=== PATIENT | male | born 1965 | race Caucasian/White ===

== ENCOUNTER 2021-06-10 11:48 | Outpatient (REF) | payer BC, SELFPAY ==
--- NOTE | ~2021-06-10 | XR_ITS ---
EXAMINATION: XR SHOULDER, LEFT CLINICAL INFORMATION: Pain COMPARISON: None TECHNIQUE: AP external rotation, Grashey, scapular Y, and axillary views of the left shoulder. FINDINGS: The bones and soft tissues are normal. No fracture. Glenohumeral and acromioclavicular alignment is anatomic with normal joint space. No abnormal soft tissue calcifications. XR/XR shoulder LT min 2V IMPRESSION: Normal left shoulder.
[2021-06-10 12:02] LABS: MANUAL DIFF FLAG NO
[2021-06-10 13:07] LABS: Basophils Absolute Auto 0.1 X10*3/uL (0.0-0.2); Basophils Percent Auto 0.8 % (0-2); Eosinophils Absolute Auto 0.3 X10*3/uL (0.0-0.4); Eosinophils Percent Auto 3.7 % (0-4); Hematocrit 48.1 % (42-52); Hemoglobin 16.1 g/dl (14.0-18.0); Imm Gran Abs Auto 0.02 X10*3/uL (0.00-0.03); Imm Gran Pct Auto 0.2 % (0.0-0.4); Lymphocytes Absolute Auto 2.2 X10*3/uL (1.2-4.9); Lymphocytes Percent Auto 25.8 % (20-40); Mean Corpuscular HGB Conc 33.5 g/dl (31.0-36.0); Mean Corpuscular Hemoglobin 30.6 pg (27.0-33.0); Mean Corpuscular Volume 91.4 fL (80-98); Mean Platelet Volume 11.1 fL (9.4-12.4); Monocytes Absolute Auto 0.5 X10*3/uL (0.1-1.2); Monocytes Percent Auto 6.2 % (2-11); Neutrophils Absolute Auto 5.3 X10*3/uL (2.0-8.3); Neutrophils Percent Auto 63.3 % (45-73); Platelet Count 273 X10*3/uL (160-400); Red Blood Count 5.26 X10*6/uL (4.60-5.80); Red Cell Distribution Width 12.9 % (11.0-16.0); White Blood Count 8.4 X10*3/uL (4.8-10.8)
[2021-06-10 13:22] LABS: Estimated Average Glucose 111 mg/dL; Hemoglobin A1c % 5.5 %
[2021-06-10 13:54] LABS: Free T4 (Free Thyroxine) 0.69 ng/dL (0.71-1.85); Thyroid Stimulating Hormone 2.53 uIU/mL (0.32-4.0); Vitamin D 25-OH Total 24.9 ng/mL (>30)
[2021-06-10 13:59] LABS: Alanine Aminotransferase 49 U/L (0-40); Albumin Level 4.6 g/dL (3.5-5.0); Alkaline Phosphatase 93 U/L (39-117); Anion Gap 14 (12-20); Aspartate Amino Transferase 34 U/L (5-37); Bilirubin Total 0.5 mg/dL (0.0-1.0); Blood Urea Nitrogen 11 mg/dL (9-16); Calcium 9.5 mg/dL (8.4-10.2); Carbon Dioxide 25 mmol/L (22-29); Chloride 107 mmol/L (96-108); Estimated Glomerular Filt Rate > 60; Glucose Random 77 mg/dL (60-115); Potassium 4.6 mmol/L (3.3-5.1); Sodium 141 mmol/L (135-145); Total Protein 7.6 g/dL (6.5-8.0)
[2021-06-10 14:03] LABS: Folate 14.9 ng/mL (> or = 4.0); Vitamin B12 478 pg/mL (200-900)
== END 2021-06-10 11:49 | disposition home or self-care (01) ==
LOC: HO.XRAY 11:48
PROVIDERS: PCP Physician Assistant; Visit Provider Nurse Practitioner Family
DX: M25.512 Pain in left shoulder (principal); R79.89 Other specified abnormal findings of blood chemistry; Z13.1 Encounter for screening for diabetes mellitus; Z13.29 Encounter for screening for other suspected endocrine disorder
CPT/HCPCS: 36415; 73030; 80053; 82306; 82607; 82746; 83036; 84439; 84443; 85025

== ENCOUNTER 2021-06-17 10:38 | Outpatient (REF) | payer BC, SELFPAY ==
--- NOTE | ~2021-06-17 | XR_ITS ---
EXAMINATION: XR CERVICAL SPINE XR THORACIC SPINE CLINICAL INFORMATION: Pain. COMPARISON: None. TECHNIQUE: AP, lateral, and swimmer's views of the thoracic spine. AP, lateral, and open-mouth views of the cervical spine. FINDINGS: Cervical Spine: Reversal of the normal cervical lordosis, which may be positional or related to muscular spasm. Minimal grade 1 anterolisthesis of C2 on C3 and C3 on C4 as well as grade 1 retrolisthesis of C4 on C5. No acute fracture. No loss of vertebral body height. Loss of intervertebral disc height with anterior endplate osteophytes at C4-C7. Normal atlantoaxial alignment. No lytic or blastic osseous lesion. Unremarkable prevertebral soft tissues. Thoracic Spine: The normal thoracic kyphosis is maintained. No acute fracture or subluxation. No loss of vertebral body or intervertebral disc height. No lytic or blastic osseous lesion. No abnormal soft tissue calcification. The visualized lungs are clear. XR/XR cervical spine 3V IMPRESSION: CERVICAL SPINE: Reversal of the normal cervical lordosis, which may be positional or related to muscular spasm. Grade 1 anterolisthesis of C2 on C3, C3 on C4, and grade 1 retrolisthesis of C4 on C5. Mild degenerative disc disease at C4-C7. THORACIC SPINE: Unremarkable examination.
--- NOTE | ~2021-06-17 | XR_ITS ---
EXAMINATION: XR CERVICAL SPINE XR THORACIC SPINE CLINICAL INFORMATION: Pain. COMPARISON: None. TECHNIQUE: AP, lateral, and swimmer's views of the thoracic spine. AP, lateral, and open-mouth views of the cervical spine. FINDINGS: Cervical Spine: Reversal of the normal cervical lordosis, which may be positional or related to muscular spasm. Minimal grade 1 anterolisthesis of C2 on C3 and C3 on C4 as well as grade 1 retrolisthesis of C4 on C5. No acute fracture. No loss of vertebral body height. Loss of intervertebral disc height with anterior endplate osteophytes at C4-C7. Normal atlantoaxial alignment. No lytic or blastic osseous lesion. Unremarkable prevertebral soft tissues. Thoracic Spine: The normal thoracic kyphosis is maintained. No acute fracture or subluxation. No loss of vertebral body or intervertebral disc height. No lytic or blastic osseous lesion. No abnormal soft tissue calcification. The visualized lungs are clear. XR/XR thoracic spine 3V IMPRESSION: CERVICAL SPINE: Reversal of the normal cervical lordosis, which may be positional or related to muscular spasm. Grade 1 anterolisthesis of C2 on C3, C3 on C4, and grade 1 retrolisthesis of C4 on C5. Mild degenerative disc disease at C4-C7. THORACIC SPINE: Unremarkable examination.
== END 2021-06-17 10:39 | disposition home or self-care (01) ==
LOC: HO.XRAY 10:38
PROVIDERS: PCP Physician Assistant; Visit Provider Nurse Practitioner Family
DX: M54.9 Dorsalgia, unspecified (principal)
CPT/HCPCS: 72040; 72072

== ENCOUNTER → 2021-07-08 09:32 | Outpatient (BNVA) | payer OTHER, BC, SELFPAY | PROVIDERS: PCP Physician Assistant; Visit Provider Physician Assistant | DX: M54.9 Dorsalgia, unspecified (principal); M54.2 Cervicalgia | CPT/HCPCS: 99202 ==

== ENCOUNTER 2024-04-30 09:37 | Outpatient (AMB) | payer BC, MEDICARE, SELFPAY ==
--- OUTSIDE RECORDS SUMMARY | 2024-04-30 09:39 | XMS_ITS | Continuity of Care Document ---
Author Organization [facility] Address [address] [place] [address]- Care Team Providers Care Coroner Name Role Phone Memo Baldwin Primary Care Physician [phone] Encounter [facility] [place] Date(s): 11/14/21 - 12/14/21 [facility] [address] [place] [address]- Allergies, Adverse Reactions, Alerts Substance Reaction Severity Status Nuts allergic to almonds, chestnuts-gumms get red and mouth itching and stomach upset Active Coconut upset stomach and nausea Act dick Immunizations Given and Recorded Vaccine Date Status Refusal Reason tetanus/diphtheria/pertussis, acel(Tdap) 02/27/19 Given Medications duloxetine 60 mg oral enteric coated capsule 1 capsule = 60 mg, By Mouth, Daily at bedtime, for lower backpain relief., # 30 capsule, 0 Refills,Maintenance, 11/14/21 16:38:00 EDT, EC Capsule, Partial fill upon patient request if the prescription is for a schedule II opioid drug. Start Date: 11/14/21 Status: Ordered Excedrin Migraine 2 tablet, By Mouth, Every 6 hours, PRN Headache, for relief of migraine headache., 0 Refills, Maintenance, 11/14/21 16:53:00 EDT, Partial fill upon patient request if the prescription is for a schedule II opioid drug. Start Date: 11/14/21 Status: Ordered pregabalin 225 mg oral capsule 1 capsule = 225 mg, By Mouth, 2 times a day, for relief of lower backpain., 0 Refills, Maintenance,11/14/21 16:32:00 EDT, Capsule, Partial fill upon patient request if the prescription is for a schedule II opioid drug. Start Date: 11/14/21 Status: Ordered Medical Equipment Implanted Date:11/21/21Target Site:Cervical Spine Description Quantity MRI Company Model PLUG XIOMY MATRIX 8X10 - M TRN ([id number]) 1 [employer] [facility] Unknown LY:No Information Assigning Authority: FDA PLUG XIOMY MATRIX 8X10 - M TRN ([id number]) 1 [employer] Shield [facility] Unknown LY:No Information Assigning Authority: FDA
--- OUTSIDE RECORDS SUMMARY | 2024-04-30 09:39 | XMS_ITS | Continuity of Care Document ---
Author Organization [facility] Address [address] [place] [address]- Care Team Providers Care Classroom Aide Name Role Phone Memo Baldwin Primary Care Physician [place] [facility] [place] - 11/22/[address] [address]- Discharge Disposition: A-D/C Home Attending Physician: Oswald Hickey MD Admitting Physician: Oswald Hickey MD Referring Physician: Oswald Hickey MD Allergies, Adverse Reactions, Alerts Substance Reaction Severity Status Nuts allergic to almonds, chestnuts-gumms get red and mouth itching and stomach upset Active Coconut upset stomach and nausea Act dick Immunizations Given and Recorded Vaccine Date Status Refusal Reason tetanus/diphtheria/pertussis, acel(Tdap) 02/27/19 Given Medications acetaminophen-oxyCODONE 325 mg-5 mg oral tablet 2, tablet, By Mouth, Every 4 hours, PRN, # 30 tablet, Refills 0, Tot. Refills 0, Acute, Pain , Moderate, 11/28/21 12:29:00 EDT, 11/21/21 12:28:00 EDT, Route to Pharmacy Electronically, [facility] Tablet, Partial fill upon patient request... Start Date: 11/21/21 Stop Date: 11/28/21 Status: Ordered duloxetine 60 mg oral enteric coated capsule [...] opioid drug. Start Date: 11/14/21 Status: Ordered Percocet-5/325 325 mg-5 mg oral tablet 2 tablet, Tablet, By Mouth, Every 4 hours, May take less, PRN for Pain , Moderate, Routine, 11/21/21 12:58:00 EDT Start Date: 11/21/21 Stop Date: 11/22/21 Status: Discontinued pregabalin 225 mg oral capsule 1 capsule = 225 mg, By Mouth, 2 times a day, for relief of lower backpain., 0 Refills, Maintenance,11/14/21 16:32:00 EDT, Capsule, Partial fill upon patient request if the prescription is for a schedule II opioid drug. Start Date: 11/14/21 Status: Ordered Procedures Procedure Date Related Diagnosis Body Site Status Arthrodesis, anterior interb bernarda, including disc space preparation, discectomy, osteophytectomy and decompression of spinal cord and/or nerve roots; cervical below C2 Completed Results Radiology Reports * Exam Date Time Procedure Performing Provider Status 11/21/21 4:51 PM C-Arm > 1 Hour Davie Castillo; Christina (Ottoniel ified) Notes: (C-Arm > 1 Hour) Reason For Exam: ORIF C4-7 RESULT: C-Arm > 1 Hour Cervical Spine 3 Views or Less, C-Arm > 1 Hour INDICATION: Reason: ORIF C4-7; Special Instructions: TT 1 hr 30 min, FT 15.1 sec COMPARISONS: None TECHNIQUE: Fluoroscopy support was provided. There was no radiologist in attendance. FLUOROSCOPY TIME: 15.1 seconds EXPOSURE: 1.0602 Gycm2 TECHNOLOGIST TIME: 1 hour 30 minutes FINDINGS: Fluoroscopy support was provided. There was no radiologist in attendance. Images demonstrate steps related to anterior cervical spinal fusion C4-C7. IMPRESSION: See above. WSN: [id number] Ordering Physician: Oswald Hickey Dictated By: James Garcia MD Dictated Date/Time: 11/21/21 5:05 pm Reviewed By: James Garcia MD Signed By: James Garcia MD Signed Date/Time: 11/21/21 5:05 pm Transcribed By: LISA Transcribed Date/Time: 11/21/21 5:04 pm * Exam Date Time Procedure Performing Provider Status 11/21/21 4:51 PM Cervical Spine 3 Views or Less Davie Castillo; Christina (Verified) Notes: (Cervical Spine 3 Views or Less) Reason For Exam: ORIF C4-7 RESULT: Cervical Spine 3 Views or Less Cervical Spine 3 Views or Less, C-Arm > 1 Hour INDICATION: Reason: ORIF C4-7; Special Instructions: TT 1 hr 30 min, FT 15.1 sec COMPARISONS: None TECHNIQUE: Fluoroscopy support was provided. There was no radiologist in attendance. FLUOROSCOPY TIME: 15.1 seconds EXPOSURE: 1.0602 Gycm2 TECHNOLOGIST TIME: 1 hour 30 minutes FINDINGS: Fluoroscopy support was provided. There was no radiologist in attendance. Images demonstrate steps related to anterior cervical spinal fusion C4-C7. IMPRESSION: See above. WSN: [id number] Ordering Physician: Oswald Hickey Dictated By: James Garcia MD Dictated Date/Time: 11/21/21 5:05 pm Reviewed By: James Garcia MD Signed By: James Garcia MD Signed Date/Time: 11/21/21 5:05 pm Transcribed By: LISA Transcribed Date/Time: 11/21/21 5:04 pm Vital Signs Most recent to oldest [Reference Range]: 1 2 3 Height 177.80 cm (11/22/21 4:33 AM) 177.80 cm (11/22/21 12:07 AM) 177.80 cm (11/21/21 7:45 PM) Weight 92.7 kg (11/21/21 1:35 PM) 94.09 kg (11/14/21 5:28 PM) Oxygen Saturation [94-100 %] 96 % (11/22/21 7:26 AM) 100 % (11/22/21 4:33 AM) 97 % (11/22/21 12:07 AM) Pulse Rate [55-90 bpm] 82 bpm (11/22/21 7:26 AM) 84 bpm (11/22/21 4:33 AM) 80 bpm (11/22/21 12:07 AM) Body Mass Index [18.5-24.99] 29.32 *H* (11/21/21 1:35 PM) 29.76 *H* (11/14/21 5:28 PM) Blood Pressure [90-138/55-84 mm Hg] 128/83mm Hg (11/22/21 7:26 AM) 123/77mm Hg (11/22/21 4:33 AM) 120/86mm Hg (11/22/21 12:07 AM) Respiratory Rate [16-30 br/min] 18 br/min (11/22/21 8:01 AM) 18 br/min (11/22/21 7:26 AM) 18 br/min (11/22/21 4:33 AM) Temperature [96.8-100.4 DegF] 97.3 DegF (11/22/21 7:26 AM) 97.5 DegF (11/22/21 4:33 AM) 97.5 DegF (11/22/21 12:07 AM) Liters per Minute 2 L/min (11/22/21 7:00 AM) 5 L/min (11/21/21 5:30 PM) 5 L/min (11/21/21 5:00 PM) Mode of Delivery (Oxygen) Nasal cannula (11/22/21 7:26 AM) Room air (11/22/21 4:33 AM) Room air (11/22/21 12:07 AM) Blood pressure sites Arm, left (11/22/21 7:26 AM) Arm, left (11/22/21 4:33 AM) Arm, left (11/22/21 12:07 AM) Temperature Route Oral (11/22/21 7:26 AM) Oral (11/22/21 4:33 AM) Oral (11/22/21 12:07 AM) Dry Weight 92.7 kg (11/21/21 1:35 PM) 94.09 kg (11/14/21 5:28 PM) Weight Obtained Via Standing scale (11/21/21 1:35 PM) Patient/family stated (11/14/21 5:28 PM) Dry Weight Obtained Via Standing scale (11/21/21 1:35 PM) Patient/family stated (11/14/21 5:28 PM) Medical Equipment Implanted Date:11/21/21Target Site:Cervical Spine Description Quantity MRI Company Model PLUG XIOMY MATRIX 8X10 - M TRN ([id number]) 1 [facility] Unknown LY:No Information Assigning Authority: FDA PLUG XIOMY MATRIX 8X10 - M TRN ([id number]) 1 [facility] Unknown LY:No Information Assigning Authority: FDA
--- OUTSIDE RECORDS SUMMARY | 2024-04-30 09:39 | XMS_ITS | Continuity of Care Document ---
Author Organization [facility] ter Address [address] [place] [address]- Care Team Providers Care Pest Technician Name Role Phone Memo Baldwin Primary Care Physician [phone] Encounter [facility] Date(s): 01/09/23 - 01/10/[address] [address] Discharge Disposition: A-D/C Home Attending Physician: Oswald Hickey MD Admitting Physician: Oswald Hickey MD Referring Physician: Oswald Hickey MD Allergies, Adverse Reactions, Alerts Substance Reaction Severity Status Nuts allergic to almonds, chestnuts-gumms get red and mouth itching and stomach upset Active Coconut upset stomach and nausea Act dick Immunizations Given and Recorded Vaccine Date Status Refusal Reason tetanus/diphtheria/pertussis, acel(Tdap) 02/27/19 Given Medications Dilaudid Inj 1 mg, Injection, IV Push Slowly, Every 4 hours, PRN for Pain , Severe, Routine, 01/09/23 16:09:00 EDT Start Date: 01/09/23 Stop Date: 01/10/23 Status: Discontinued duloxetine 60 mg oral enteric coated capsule [...] opioid drug. Start Date: 11/14/21 Status: Ordered oxyCODONE 5 mg oral tablet See Instructions, PRN, 1-2 tablet By Mouth Every 6 hours, # 56 tablet, Refills 0, Tot. Refills 0, Acute 01/16/23 18:05:00 EDT, Pain , Moderate, 01/09/23 18:05:00 EDT, Instructions Replace Required Details, Route to Pharmacy Electronically, [facility]... Start Date: 01/09/23 Stop Date: 01/16/23 Status: Ordered oxyCODONE 5 mg oral tablet 10 mg, 2, tablet, By Mouth, Every 6 hours, PRN, # 30 tablet, Refills 0, Tot. Refills 0, Acute 01/17/23 8:32:00 EDT, Pain , Moderate, 01/10/23 8:32:00 EDT, Print Requisition, Partial fill upon patientrequest if the prescription is for a schedule II op... Start Date: 01/10/23 Stop Date: 01/17/23 Status: Ordered pregabalin 225 mg oral capsule 1 capsule = 225 mg, By Mouth, 2 times a day, for relief of lower backpain., 0 Refills, Maintenance,11/14/21 16:32:00 EDT, Capsule, Partial fill upon patient request if the prescription is for a schedule II opioid drug. Start Date: 11/14/21 Status: Ordered Zanaflex 4 mg oral tablet 4 mg, 1, tablet, By Mouth, 3 times a day, PRN, # 30 tablet, Refills 0, Tot. Refills 0, Maintenance,Pain , Moderate, 01/10/23 8:32:00 EDT, Route to Pharmacy Electronically, [facility], Partial fill upon patient request if the prescriptio... Start Date: 01/10/23 Status: Ordered Procedures Procedure Date Related Diagnosis Body Site Status Arthrodesis, posterior or po sterolateral technique, single interspace; cervical below C2 segment Completed Results Radiology Reports * Exam Date Time Procedure Performing Provider Status 01/09/23 3:32 PM C-Arm > 1 Hour Nile Bautista; Auth (Ottoniel ified) Notes: (C-Arm > 1 Hour) Reason For Exam: POST C-SPINE RESULT: C-Arm > 1 Hour Cervical Spine 3 Views or Less, C-Arm > 1 Hour Reason: POST C-SPINE TECHNIQUE: Fluoroscopy support was provided. There was no radiologist in attendance. FLUOROSCOPY TIME: 05.2 seconds EXPOSURE: 1.12 mGy (reference air kerma) TECHNOLOGIST TIME: 1 hour 12 minutes FINDINGS: Fluoroscopy was performed and a total of 5 spot films of the cervical spine were obtained during the procedure. There is posterior fixation of C4-C7. Please refer to operative report for further details. IMPRESSION: See above. WSN: [id number] Ordering Physician: Ulises Hickey MD Dictated By: Jesus Burleson MD Dictated Date/Time: 01/09/23 3:44 pm Reviewed By: Jesus Burleson MD Signed By: Jesus Burleson MD Signed Date/Time: 01/09/23 3:44 pm Transcribed By: LISA Transcribed Date/Time: 01/09/23 3:43 pm * Exam Date Time Procedure Performing Provider Status 01/09/23 3:32 PM Cervical Spine 3 Views or Less Nile Bautista; Auth (Verified) Notes: (Cervical Spine 3 Views or Less) Reason For Exam: POST C-SPINE RESULT: Cervical Spine 3 Views or Less Cervical Spine 3 Views or Less, C-Arm > 1 Hour Reason: POST C-SPINE TECHNIQUE: Fluoroscopy support was provided. There was no radiologist in attendance. FLUOROSCOPY TIME: 05.2 seconds EXPOSURE: 1.12 mGy (reference air kerma) TECHNOLOGIST TIME: 1 hour 12 minutes FINDINGS: Fluoroscopy was performed and a total of 5 spot films of the cervical spine were obtained during the procedure. There is posterior fixation of C4-C7. Please refer to operative report for further details. IMPRESSION: See above. WSN: [id number] Ordering Physician: Ulises Hickey MD Dictated By: Jesus Burleson MD Dictated Date/Time: 01/09/23 3:44 pm Reviewed By: Jesus Burleson MD Signed By: Jesus Burleson MD Signed Date/Time: 01/09/23 3:44 pm Transcribed By: LISA Transcribed Date/Time: 01/09/23 3:43 pm Vital Signs Most recent to oldest [Reference Range]: 1 2 3 Height 177 cm (01/10/23 7:14 AM) 177 cm (01/10/23 3:37 AM) 177 cm (01/09/23 10:46 PM) Weight 89.8 kg (01/09/23 10:10 AM) 89 kg (01/08/23 1:45 PM) Oxygen Saturation [94-100 %] 96 % (01/10/23 7:14 AM) 96 % (01/10/23 3:37 AM) 93 % *L* (01/09/23 10:46 PM) Pulse Rate [55-90 bpm] 86 bpm (01/10/23 7:14 AM) 90 bpm (01/10/23 3:37 AM) 84 bpm (01/09/23 10:46 PM) Body Mass Index [18.5-24.99 kg/m2] 28.66 kg/m2 *H* (01/09/23 10:10 AM) 28.41 kg/m2 *H* (01/08/23 1:45 PM) Blood Pressure [90-138/55-84 mm Hg] 135/86mm Hg (01/10/23 7:14 AM) 134/79mm Hg (01/10/23 3:37 AM) 146/94mm Hg *H* (01/09/23 10:46 PM) Respiratory Rate [16-30 br/min] 18 br/min (01/10/23 8:06 AM) 18 br/min (01/10/23 7:30 AM) 18 br/min (01/10/23 7:30 AM) Temperature [96.8-100.4 DegF] 97.7 DegF (01/10/23 7:14 AM) 98.1 DegF (01/10/23 3:37 AM) 97.5 DegF (01/09/23 10:46 PM) Liters per Minute 2 L/min (01/09/23 6:13 PM) 2 L/min (01/09/23 5:15 PM) 2 L/min (01/09/23 4:45 PM) Mode of Delivery (Oxygen) Room air (01/10/23 7:14 AM) Room air (01/10/23 3:37 AM) Room air (01/09/23 10:46 PM) Blood pressure sites Arm, left (01/10/23 7:14 AM) Arm, left (01/10/23 3:37 AM) Arm, left (01/09/23 10:46 PM) Temperature Route Oral (01/10/23 7:14 AM) Oral (01/10/23 3:37 AM) Oral (01/09/23 10:46 PM) Dry Weight 89.8 kg (01/09/23 10:10 AM) 89 kg (01/08/23 1:45 PM) Weight Obtained Via Standing scale (01/09/23 10:10 AM) Patient/family stated (01/08/23 1:45 PM) Dry Weight Obtained Via Standing scale (01/09/23 10:10 AM) Patient/family stated (01/08/23 1:45 PM) Implantable Device List Procedure Provider Procedure Date Device Type Site Discectomy and Fusion Anterior Cervical Oswald Hickey MD 11/21/21 Unknown Cervical Sp ine Device Identifier Serial Number Lot or Batch Number Manufacturing Date Expiration Date Distinct Identification Code MRI Safety Implantable Status Assigning Authority Unknown [id number] Unknown Unknown 03/27/24 Unknown Unknown Active Unknown Procedure Provider Procedure Date Device Type Site Discectomy and Fusion Anterior Cervical Oswald Hickey MD 11/21/21 Unknown Cervical Sp ine Device Identifier Serial Number Lot or Batch Number Manufacturing Date Expiration Date Distinct Identification Code MRI Safety Implantable Status Assigning Authority Unknown [id number] Unknown Unknown 03/27/24 Unknown Unknown Active Unknown Hospital Progress note * Oswald Hickey MD: PERFORM, SIGN, VERIFY Event Display: Progress Note Hospital Authored Date: [id number] Patient: AMRITA BURNETTE Age: 57 years Sex: Male : 1965 Associated Diagnoses: None Author: Oswald Hickey MD Health Status Allergies Allergic Reactions (Selected) Severity Not Documented Coconut- Upset stomach and nausea. Nuts- Allergic to almonds, chestnuts-gumms get red and mouth itching and stomach upset. Patient With a good appetite. Ambulating to bathroom. Voiding spontaneously. Incision pain is the same Results Review Vital Signs Vitals : VITALS 01/10/2023 7:14 EDT Temperature 97.7 DegF Temperature Route Oral Pulse Rate 96 bpm H Respiratory Rate 18 br/min Systolic Blood Pressure 135 mm Hg Diastolic Blood Pressure 86 mm Hg H Physical Examination Neurologic Status alert appropriate. Motor Exam baseline. DTR's Achilles: on right is 1+ symmetric, on left is 1+ symmetric. Clonus is: absent. Sensory baseline. Incision Drainage: serosanguinous. Impression and Plan Ambulate Patient Plan for D/C home when ambulating and eating * Vicky Clements RN: PERFORM, SIGN, VERIFY Event Display: Progress Note Hospital Authored Date: [id number] Patient: AMRITA BURNETTE Age: 57 years Sex: Male : 1965 Associated Diagnoses: None Author: Vicky Clements RN Findings Nursing Data Genitourinary Data. : Genitourinary Data. 01/10/2023 4:00 EDT Last Void 01/10/2023 4:54 Post void residual 548 mL Genitourinary Comment voiding well - last void was 575 pt continues to decline/refuse s/c or fernandez 01/10/2023 1:00 EDT Post void residual 698 mL 01/09/2023 23:00 EDT Post void residual 977 mL 01/09/2023 22:00 EDT Genitourinary Assessment Status Changes from recorder's assessment Genitourinary Symptoms Urinary retention, Other: abd distention Genitourinary Comment c/o abd distention - does not want s/c or fernandez 01/09/2023 19:24 EDT Genitourinary Symptoms Other: due to void @ 2100 WNL except . Narrative/Incidental Patient A&Ox4. Reports posterior neck and upper back pain throughout the night. Medicated with PRN Dilaudid and Oxycodone. Both given with good effect. Patient did not void as of 2200 01/09, bladder scan showed 1129. Patient noted to have distended abd and feeling uncomfortable. Patient refused fernandez and straight cath, stated he wanted to attempt to void on his own. Patient was able to void 200mL. He has continue to void in increasing amounts. Last PVR was <500mL, patient just voided 575 before the PVR. He reports no discomfort or distention in bladder/abd. Continues to refuse fernandez or straight cath. Reports he feels he is voiding well, even states that the amount he has voided this shift is greater than he normally voids at home before the procedure. GUTIERREZ drain emptied out for 40cc before midnight and only 1cc this morning. Dressing is CDI. Patient has been up ambulating well, occasionally using walker for stability. Patient updated on plan of care. Questions answered. Call fish in reach. Safety maintained. . Note * Hari Plummer RN: PERFORM Event Display: Discharge/Transfer Note Hospital Authored Date: [id number] Nursing Discharge Note Entered On: 01/10/2023 12:26 EDT Performed On: 01/10/2023 12:25 EDT by Hari Plummer RN Nursing Discharge Note 2 Discharge Time : 01/10/2023 12:26 EDT Discharge Level of Care at Discharge : Inpatient Rehab Facility/Unit Patient Left Unit Via : Wheelchair Patient Accompanied Off Unit with : Responsible adult DC Instructions Provided & Signed by Pt : Yes Patient Understands D/C Instructions : Yes Patient Instructions Discharge Signed : Yes Did Pt have Specialty Bed or Wound Vac : No Hari Plummer RN - 01/10/2023 12:25 EDT * Hari Plummer RN: PERFORM Event Display: Patient Education/Instruction Authored Date: [id number] Inpatient Adult Discharge Instructions [address] [address] Name: AMRITA BURNETTE : 1965 Visit: 01/09/2023 09:33:00 Current Date: 01/10/2023 10:25 Account: [id number] Inpatient Adult Discharge Instructions We would like to thank you for allowing us to assist you with your healthcare needs. The following includes patient education materials and information regarding your injury/illness. Our entire staffstrives to provide an excellent experience for our patients and their families. PLEASE ENSURE YOU FOLLOW-UP PER THE INSTRUCTIONS BELOW! ?? YOUR OPINION IS IMPORTANT TO US! Please complete the survey you may receive by mail or email. Your feedback will be used to make improvements to the healthcare experiences of our patients and their families. Surveys are administered by [employer] ?? If further treatment with your primary care physician or another doctor is recommended, it is important for you to keep the appointment. Call your primary care physician or return to the Emergency Department immediately if your condition worsens, fails to improve, or new symptoms develop. If you need to find a doctor, you can call [facility] Link for a referral at [phone] or toll free at [phone] or log in to [email or web address] ?? You can view and manage your care through the patient portal or by using a health care christie of your choosing. [facility] [employer] is a website that allows you to securely view your medical information including your hospital discharge summary, office visit summaries, medications and follow-up visits. You can also request appointments, renew medications, and request access to your medical information using a health care christie of your choosing, or just ask a question. You can enroll at [email or web address] or register during your next office visit. You have been discharged from [facility], Patient Care Unit: D3B. If you have any questions regarding these instructions after you leave, please call us and we will be happy to assist you. [facility] Your Care Team Attending Physician Oswald Hickey MD Discharging Providers Oswald Hickey MD Reason for Your Visit DEGENERATIVE CHANGES CERVICAL SPINE W SEVERE NEEUR Your Diagnosis Cervical spinal stenosis Tests Performed Below is a partial list of the tests performed during your hospitalization. You may have had other tests and procedures not included in this list. Please discuss all test results with your provider. XR C-Arm > 1 Hour XR Cervical Spine 3 Views or Less Primary Care Provider Memo Baldwin Advance Directive . Discharge Vitals Temperature: 97.7 DegF Height: 177 cm Pulse Rate:??96 bpm??High Weight: 89.8 kg Respiratory Rate: 18 br/min Body Mass Index:??28.66 kg/m2??High Systolic Blood Pressure: 135 mm Hg Body surface area: 2.1 Diastolic Blood Pressure:??86 mm Hg??High ?? Oxygen Saturation:??86 %??Low ?? Studies Pending All tests and labs ordered during this hospital stay have been completed unless listed below. Please discuss all pending results with your provider listed above in these instructions. ?? No incomplete studies found What to do next Instructions From Your Doctor Discharge Orders Discharge Medications AMRITA BURNETTE :1965 Visit Date:01/09/2023 Medications: Please continue your medications until treatment is completed or stopped by your provider. Medications not listed below should be discontinued. Discuss any questions related to medications with your provider. What How Much When Instructions Next Dose New Oxycodone (oxyCODONE 5 mg oral tablet) 2 tab(s) Oral Every 6 hours as needed for Pain , Moderate Printed Prescription 01/10 New Oxycodone (oxyCODONE 5 mg oral tablet) See instructions 1-2 tablet By Mouth Every 6 hours ?? Pickup at [facility] 3 01/10 New Tizanidine (Zanaflex 4 mg oral tablet) 1 tab(s) Oral 3 times a day as needed for Pain , Moderate Pickup at [facility] 3 afternoon 01/10 Unchanged Apap/ Asa/ Caffeine (Excedrin Migraine) 2 tab(s) Oral Every 6 hours as needed for Headache for relief of migraine headache. ?? every 6 hrs 01/10 Unchanged Duloxetine (duloxetine 60 mg oral enteric coated capsule) 1 capsule Oral Daily at Bedtime for lower backpain relief. ?? 01/10 bedtime Unchanged Pregabalin (pregabalin 225 mg oral capsule) 1 capsule Oral Twice a day for relief of lower backpain. ?? 01/10 bedtime Pharmacy Information [facility] 3: [address] [place], [place] [id number] [phone] Test Results Below is a partial list of the most recent Laboratory test results done prior to this discharge. You may have had other tests and procedures not included in this list. Please discuss all test resultswith your provider. Allergies (NKA means No Known Allergies) Coconut??(upset stomach and nausea) Nuts??(allergic to almonds, chestnuts-gumms get red and mouth itching and stomach upset) Problems No qualifying data available Education Materials Below is the list of Educational Leaflet Providered with your Discharge Instructions. Valuables and Belongings I fully understand and agree that [facility] accepts no responsibility for all my personal property including clothing, toilet articles, radios, jewelry, dentures, hearing aids, rings, money, or any other property that is in my possession or is brought to me after admission. I understand certain valuables may be placed in a hospital safe for a short period of time. I understand that the hospital is not liable for loss or damage due to accident, fire, or other natural occurrence while said property is in the safe. I accept full responsibility for any personal property that I keep with me, and will not hold the hospital responsible in case of loss or disappearance. I acknowledge that i have been encouraged to send valuables and belongings home. ?? Possessions released to: To PACU Date for Pt to Sign Valuables/Belongings: 01/09/23 18:13:00 ?? Other Discharge Information ? Pulmonary Rehab Status?? Pulmonary Rehab Discharge Status?? Respiratory Rate: 18 br/min ? Common Emergency Awareness Tips IS IT A STROKE? Act FAST and Check for these signs: FACE Does the face look uneven? ARM Does one arm drift down? SPEECH Does their speech sound strange? TIME Call at any sign of stroke ?? Heart Attack Signs Chest discomfort: Most heart attacks involve discomfort in the center of the chest and lasts more than a few minutes, or goes away and comes back. It can feel like uncomfortable pressure, squeezing, fullness or pain. Discomfort in upper body: Symptoms can include pain or discomfort in one or both arms, back, neck, jaw or stomach. Shortness of breath: With or without discomfort. Other signs: Breaking out in a cold sweat, nausea, or lightheaded. Remember, MINUTES DO MATTER. If you experience any of these heart attack warning signs, call to get immediate medical attention! ?? Smoking can increase your chances of developing chronic health problems and can cause harmful effects to other family members in your house. If you smoke, you are strongly encouraged to quit. Please call [facility] airpim Link at [phone] or [phone] ([phone]) or log in to [email or web address] for referrals to smoking cessation programs. ?? 348 Suicide & Crisis Lifeline is available 26/03 if you or someone you know needs to find a reason to keep living. By calling 084 you'll be connected to a skilled, trained counselor at a crisis center in your area. INPATIENT DISCHARGE INSTRUCTIONS SIGNATURE AMRITA SOLIZ Location:[facility] Registration Date and Time:01/09/2023 09:33 EDT Primary Care Physician: Memo Baldwin, I AMRITA BURNETTE, have received the above patient education materials/instructions and have verbalized understanding. If ambulance or transport services are being used I further acknowledge being given a choice of service. ?? If you need to contact me, please call me at this number: . Patient/Mental Health Practitioner Name: Patient/Mental Health Practitioner Signature: Relationship to Patient: Witness Name/Signature: Date: Radiology * [facility] , CIS S: TRANSCRIBE Jeuss Burleson MD: VERIFY Event Display: Result: Authored Date: [id number] Cervical Spine 3 Views or Less, C-Arm > 1 Hour Reason: POST C-SPINE TECHNIQUE: Fluoroscopy support was provided. There was no radiologist in attendance. FLUOROSCOPY TIME: 05.2 seconds EXPOSURE: 1.12 mGy (reference air kerma) TECHNOLOGIST TIME: 1 hour 12 minutes FINDINGS: Fluoroscopy was performed and a total of 5 spot films of the cervical spine were obtained during the procedure. There is posterior fixation of C4-C7. Please refer to operative report for further details. IMPRESSION: See above. WSN: [id number] Ordering Physician: Ulises Hickey MD Dictated By: Jesus Burleson MD Dictated Date/Time: 01/09/23 3:44 pm Reviewed By: Jesus Burleson MD Signed By: Jesus Burleson MD Signed Date/Time: 01/09/23 3:44 pm Transcribed By: LISA Transcribed Date/Time: 01/09/23 3:43 pm XR Cervical spine Views * [facility]SP[facility] , CIS S: TRANSCRIBE Jesus Burleson MD: VERIFY Event Display: Result: Authored Date: [id number] Cervical Spine 3 Views or Less, C-Arm > 1 Hour Reason: POST C-SPINE TECHNIQUE: Fluoroscopy support was provided. There was no radiologist in attendance. FLUOROSCOPY TIME: 05.2 seconds EXPOSURE: 1.12 mGy (reference air kerma) TECHNOLOGIST TIME: 1 hour 12 minutes FINDINGS: Fluoroscopy was performed and a total of 5 spot films of the cervical spine were obtained during the procedure. There is posterior fixation of C4-C7. Please refer to operative report for further details. IMPRESSION: See above. WSN: [id number] Ordering Physician: Ulises Hickey MD Dictated By: Jesus Burleson MD Dictated Date/Time: 01/09/23 3:44 pm Reviewed By: Jesus Burleson MD Signed By: Jesus Burleson MD Signed Date/Time: 01/09/23 3:44 pm Transcribed By: LISA Transcribed Date/Time: 01/09/23 3:43 pm Patient Care team information Care Team Personnel Name: Hari Plummer RN Position: S RN Member Role: Primary Care Nurse Name: Memo Baldwin Position: Reference Physician Member Role: PCP Address: Address: [address] [place] [address]- Name: Vicky Clements RN Position: S RN Member Role: Primary Care Nurse Name: Julian Coffey RN Position: S RN Member Role: Primary Care Nurse Care Team Related Persons Name: YRIS BURNETTE Address: home [address] [place] [id number]
--- NOTE | 2024-04-30 09:42 | AM.OFFWIN_ITS ---
Intake Vital Signs 04/30/24 09:46 Height 5 ft 10 in Weight 206 lb 6 oz BMI 29.6 BP 140/92 H Blood Pressure Location Lt brachial Position Sitting Pulse 95 Pulse Source Pulse Oximeter Pulse Oximetry (%) 98 Oxygen Delivery Method Room Air Intake Visit Reasons: EP something in left eye Intake Note: Pt presents to the office today for c/o left eye irritation. Pt states 2 days a go he was cleaning out his basement and something got in his eye and since then has had pain, blurry vision, and a watery eye. Patient Tobacco Use Status: Never used Tobacco Allergies No Known Allergies Allergy (Verified 04/30/24 09:48) HPI EP something in left eye HPI Details This note is constructed using voice recognition software. While every effort has been made to ensure accuracy, compressed gas plant worker errors may have been included. The patient is a 58 year old male who presents to the clinic today with sensation of foreign body in his left eye since 2 days ago after cleaning the basement. He has tried flushing that eye each day since this occurred, however symptoms have not improved. He now reports vision to now involve some blurriness. He feels as if the pain is in the upper portion of the eye under the lid. He has no idea what could be in his eye, he was working around dust, torie, and many other things that he had flying in the air.He continues to feel this foreign body is still in the eye, symptoms have worsened since onset. [facility] Surgical History Hx of knee surgery Social History Housing: House Patient Tobacco Use Status: Never used Tobacco Tobacco use type: Cigarette e-Cigarette/Vaping Use: Never Used Second Hand Smoke Exposure: No Current occupational status: employed Review of Systems Const All systems reviewed & are unremarkable except as noted in HPI and below Physical Exam Vital Signs: Last Vital Signs Pulse 95 04/30/24 09:46 BP 140/92 H 04/30/24 09:46 Pulse Ox 98 04/30/24 09:46 Oxygen Delivery Method Room Air 04/30/24 09:46 BMI result Body Mass Index 29.6 Const General: cooperative, healthy appearing, comfortable, no acute distress and alert Orientation/consciousness: patient oriented x3 Limitations: no limitations HEENT Head: Yes normal to inspection and Yes normocephalic Eyes Alignment and Position: alignment normal Periorbital: periorbital findings normal Eyelids: Yes eyelids normal Conjunctivae: conjunctivae normal Corneas: fluorescein used (No pooling of fluorescein stain) Pupils: Equal, round and reactive pupils present EOM: EOMs intact bilaterally Direct Ophthalmoscopy: normal light reflex Skin General skin exam: no rashes or lesions noted, elasticity normal and turgor normal Neuro General: patient oriented x3 Cranial nerves: Yes Equal, round and reactive pupils present Psych Appearance: grossly normal Mental Status: mental status grossly normal Speech and movement: Normal speech and movement present Affect: normal affect Office Procedures Fluorescein eye exam Details: Instilled 2 drops tetracaine into the eye. Using fluoescein stain, eye examined for any pooling of dye, which were not present. EOMI. Patient tolerated procedure well. Reviewed with patient that this will cause abnormal color of tears, which will return to normal over the next several hours. Assessment & Plan Assessment & Plan (1) Foreign body of left eye: Code(s): T15.92XA - Foreign body on external eye, part unspecified, left eye, initial encounter Qualifiers: Encounter type: initial encounter Qualified Code(s): T15.92XA - Foreign body on external eye, part unspecified, left eye, initial encounter Plan: Given vision changes, advised urgent evaluation by opthomology. List of providers given to patient, and referral placed. Contacted office directly to verify secured appointment for today, referral faxed to office for convenience. Plan See above for full details and plan. Orders: Referrals Ophthalmology Referral T15.92XA - Foreign body on external eye, part unspecified, left eye, initial encounter Coding Level of Care Code Est Pt Level 4 (46492) Diagnoses Foreign body of left eye, initial encounter T15.92XA Encounter type: initial encounter Time Spent (min) 40
[2024-04-30 09:46] VITALS: BP 140/92; PULSE 95; O2SAT 98; BMI 29.6
== END 2024-04-30 10:51 | disposition home or self-care (01) ==
PROVIDERS: PCP Physician Assistant; Visit Provider Registered Nurse
DX: T15.92XA Foreign body on external eye, part unspecified, left eye, initial encounter (principal)
CPT/HCPCS: 99214

== ENCOUNTER 2025-07-02 08:42 | Outpatient (REF) | payer OTHER, SELFPAY ==
--- NOTE | ~2025-07-02 | XR_ITS ---
EXAMINATION: XR CERVICAL SPINE 2-3 VIEWS HISTORY: M54.2 - Cervicalgia COMPARISON: Comparison is made with the prior examination dated 06/17/2021. FINDINGS: AP, lateral, and open-mouth odontoid views of the cervical spine are submitted. Osseous mineralization is normal. The patient is status post anterior cervical disc fusion and posterior fusion with pedicle screws and spinal stabilization rods from C4 through C7. The fusion hardware is intact.. There is straightening of the normal cervical lordosis. The odontoid and lateral masses of C1 are intact. There is no prevertebral soft tissue swelling. XR/XR cervical spine 3V IMPRESSION: Straightening of the normal cervical lordosis. Status post anterior-posterior fusion from C4 through C7. Electronically signed by: Oswald Winn MD 07/02/2025 10:20 AM EDT
== END 2025-07-02 08:43 | disposition home or self-care (01) ==
LOC: HO.XRAY 08:42
PROVIDERS: PCP Physician Assistant; Visit Provider Internal Medicine
DX: Z00.00 Encounter for general adult medical examination without abnormal findings (principal); M54.2 Cervicalgia; K90.49 Malabsorption due to intolerance, not elsewhere classified; M54.50 Low back pain, unspecified; G89.29 Other chronic pain; H91.90 Unspecified hearing loss, unspecified ear; R03.0 Elevated blood-pressure reading, without diagnosis of hypertension; Z23 Encounter for immunization; Z79.899 Other long term (current) drug therapy
CPT/HCPCS: 72040; 90471; 90656; 96127; 99202

== ENCOUNTER 2025-07-02 08:42 | Outpatient (AMB) | payer OTHER, SELFPAY ==
--- NOTE | 2025-07-02 08:48 | A.OFFPC_ITS ---
Vital Signs 07/02/25 08:50 Height 5 ft 8.9 in Weight 198 lb 6 oz BMI 29.4 BP 140/80 H Blood Pressure Location Rt brachial Position Sitting Pulse 90 Pulse Source Pulse Oximeter Temp 97.5 F Temp Source Temporal Artery Scan Pulse Oximetry (%) 97 Oxygen Delivery Method Room Air Intake Visit Reasons: establish care/Neck pain Intake Note: Patient is a new patient here to re-establish care for Neck pain, Back pain, Low thyroid levels, Nerve damage in both arms, Insomina. Transferring care from [facility]. Medical records have been requested and have received. Inspecting Machine Adjuster Required: No Superintendent Power: Not Required per policy Accompanied by: Self / Same As Patient Allergies chicken derived Allergy (Intermediate, Verified 07/02/25 09:01) Upset stomach ibuprofen Allergy (Intermediate, Verified 07/02/25 09:01) Upset stomach Pork/Porcine Containing Products Allergy (Intermediate, Verified 07/02/25 09:01) GI Medication List - Last Reconciled 07/02/25 by Chun Conroy MD baclofen 10 mg PO Q8H PRN duloxetine 60 mg PO DAILY pregabalin 225 mg PO BID Tobacco use date assessed: 07/02/25 Dental Screening Dental Screen Date: 07/02/25 Did you have a dental visit in the last 12 months?: Yes Did you have a dental problem in the last 6 months where you did not have access to dental care?: No Was dental information given to patient?: Patient has dentist HPI HPI Comments History of Present Illness Details 59-year-old male re-establishing primary care after several years, presenting with a chief complaint of increased neck pain and a secondary issue of food intolerances. The patient has a history of major neck surgery in 2022 for a work-related injury, which included two separate procedures: an anterior approach to replace three discs and a posterior approach for a C3-C7 fusion with two bars. 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 A couple of months ago, he experienced a pop in his neck upon waking and has had increased pain since. His massage therapist recently noted a bulge in the posterior neck region where the surgical hardware is located. The patient also reports a 15-year history of chronic low back pain due to two herniated discs. He is managed by a sports medicine physician, Dr. Frey, whom he sees every six months. His treatment regimen includes pregabalin 225 mg and duloxetine, which he finds effective for pain control and allows him to be somewhat pain-free. Approximately four to five years ago, after a severe COVID-19 infection, the patient developed significant food intolerances. He experiences severe gastrointestinal distress if he consumes pork, chicken, turkey, processed foods, chemicals like MSG, or palm oil. This necessitated a dietary change to primarily fruits, vegetables, and occasional beef, leading to a weight loss from 230-239 pounds to 190 pounds. His last colonoscopy was approximately 8-9 years ago. His family history is significant for melanoma in his father, an internal cancer in his aunt, and heart disease, including a brother who required surgery for a heart valve defect. His mother has hypertension. [facility] Surgical History (Updated 07/02/25 @ 09:03 by DAMON Khan) History of neck surgery Hx of knee surgery Family History (Updated 07/02/25 @ 09:03 by DAMON Khan) Other Mental health disorder Substance use disorder Social History (Updated 07/02/25 @ 09:04 by DAMON Khan) Housing: House Alcohol intake: never Patient Tobacco Use Status: Never used Tobacco Tobacco use type: Cigarette e-Cigarette/Vaping Use: Never Used Second Hand Smoke Exposure: No Substance Use Type: Marijuana service: No Current occupational status: disabled Cognitive needs: Yes (Cane) Hearing needs: No Vision needs: Yes (Reading glasses) Questionnaire PHQ-9 Over the last 2 weeks, how often have you been bothered by any of the following problems? 1. Little interest or pleasure in doing things: several days 2. Feeling down, depressed, or hopeless: not at all 3. Trouble falling or staying asleep, or sleeping too much: more than half the days 4. Feeling tired or having little energy: not at all 5. Poor appetite or overeating: not at all 6. Feeling bad about yourself - or that you are a failure or have let yourself or your family down: not at all 7. Trouble concentrating on things, such as reading the newspaper or watching television: more than half the days 8. Moving or speaking so slowly that other people could have noticed. Or the opposite - being so fidgety or restless that you have been moving around a lot more than usual: not at all 9. Thoughts that you would be better off or of hurting yourself in some way: not at all Total score: 5 Depression Screening Interpretation: Negative (Patient's symptoms are due to pain. He denies low mood or depression. ) Depression Screening Done: Yes 44839 - PHQ-9 Billing: Yes Source: Developed by Drs. Oswald Espinal, Jennifer Gonzalez, Ismael Agarwal and colleagues, with an educational boo from [employer]. Thrive Questionnaire Date Thrive assessed: 07/02/25 I am a: Patient What is your living situation today?: I have a steady place to live Within the past 12 months, did the food you bought not last and you didn't have the money to get more?: I choose not to answer this question Within the past 12 months, did you worry whether your food would run out before you got money to buy more?: I choose not to answer this question Do you have trouble paying for medicines?: No Do you have trouble getting transportation to medical appointments?: No Do you have trouble paying your heating and electricity bill?: No Do you have trouble taking care of your child, family member or friend?: No Do you have trouble with day-to-day activities such as bathing, preparing meals, shopping, managing finances, etc.?: I choose not to answer this question Are you currently unemployed and looking for a job?: I choose not to answer this question Are you interested in more education?: No Please select the resources that you would like help with: None Currently or been in a relationship where the following occur: No concerns reported THRIVE Score: 0 AUDIT C Alcohol Use Questionnaire (AUDIT-C) 1. How often do you have a drink containing alcohol?: Never Total Score: 0 DASIA-7 AMB Questionnaire DASIA-7 Date DASIA - 7 assessed: 07/02/25 Feeling nervous, anxious, or on edge: 0 = Not at all Not being able to stop or control worryin = Not at all Worrying too much about different things: 0 = Not at all Trouble relaxin = Not at all Being so restless that it is hard to sit still: 0 = Not at all Becoming easily annoyed or irritable: 0 = Not at all Feeling afraid as if something awful might happen: 0 = Not at all Total DASIA-7 score (0-4 normal; 5-9 mild; 10-14 moderate; 15-21 severe): 0 Source: Developed by Drs. Oswald Espinal, Jennifer Gonzalez, Ismael Agarwal and colleagues, with an educational boo from [employer]. Review of Systems Const Details: Positives besides what was mentioned in HPI are in BOLD Constitutional: No Weight Change, No Fever, No Chills, No Night Sweats, No Fatigue, No Malaise ENT/Mouth: No Hearing Changes, No Ear Pain, No Nasal Congestion, No Sinus Pain, No Hoarseness, No sore throat, No Rhinorrhea, No Swallowing Difficulty Eyes: No Eye Pain, No Swelling, No Redness, No Foreign Body, No Discharge, No Vision Changes Cardiovascular: No Chest Pain, No SOB, No PND, No Dyspnea on Exertion, No Orthopnea, No Claudication, No Edema, No Palpitations Respiratory: No Cough, No Sputum, No Wheezing, No Smoke Exposure, No Dyspnea Gastrointestinal: No Nausea, No Vomiting, No Diarrhea, No Constipation, No Pain, No Heartburn, No Anorexia, No Dysphagia, No Hematochezia, No Melena, No Flatulence, No Jaundice Genitourinary: No Dysmenorrhea, No DUB, No Dyspareunia, No Dysuria, No Urinary Frequency, No Hematuria, No Urinary Incontinence, No Urgency, No Flank Pain, No Urinary Flow Changes, No Hesitancy Musculoskeletal: No Arthralgias, No Myalgias, No Joint Swelling, No Joint Stiffness, No Back Pain, No Neck Pain, No Injury History Skin: No Skin Lesions, No Pruritis, No Hair Changes, No Breast/Skin Changes, No Nipple Discharge Neuro: No Weakness, No Numbness, No Paresthesias, No Loss of Consciousness, No Syncope, No Dizziness, No Headache, No Coordination Changes, No Recent Falls Psych: No Anxiety/Panic, No Depression, No Insomnia, No Personality Changes, No Delusions, No Rumination, No SI/HI/AH/VH, No Social Issues, No Memory Changes, No Violence/Abuse Hx., No Eating Concerns Heme/Lymph: No Bruising, No Bleeding, No Transfusions History, No Lymphadenopathy Endocrine: No Polyuria, No Polydipsia, No Temperature Intolerance Physical exam (Primary Care) Vital Signs: Last Vital Signs Temp 97.5 F 07/02/25 08:50 Pulse 90 07/02/25 08:50 BP 140/80 H 07/02/25 08:50 Pulse Ox 97 07/02/25 08:50 Oxygen Delivery Method Room Air 07/02/25 08:50 BMI result Body Mass Index 29.4 Tobacco/Smoking Status: Tobacco use Status Tobacco use date assessed 07/02/25 07/02/25 08:59 Patient Tobacco Use Status Never used Tobacco 07/02/25 09:04 Tobacco use type Cigarette 07/02/25 09:04 e-Cigarette/Vaping Use Never Used 07/02/25 09:04 PHQ-9: PHQ-9 Score PHQ-9: Total score 5 07/02/25 09:16 Depression Screening Interpretation: Negative (Patient's symptoms are due to pain. He denies low mood or depression. ) Thrive Assessment: Date of Thrive Assessment Date Thrive assessed 07/02/25 07/02/25 08:59 Currently or been in a relationship where the following occur: No concerns reported Const Other: Pertinent findings are in BOLD GENERAL APPEARANCE NAD, activity normal for age, well developed/ well nourished, no cyanosis, pallor, or diaphoresis. EYES lids/conjunctiva normal. EARS/NOSE/THROAT Mucous membranes moist, nares normal, lips/teeth normal uvula midline without oral pharyngeal erythema, exudate or swelling TMs normal bilaterally. No lymphangitis/lymphedema. HEAD/NECK normocephalic atraumatic, no facial trauma, neck is supple. RESPIRATORY respiratory effort normal, speaks in full sentences, no tripod position, no accessory muscle use. Lungs clear to auscultation without rhonchi, wheezes, rales CARDIAC Regular rate and rhythm, no edema. ABDOMINAL Soft, ND/NT. No evidence of fluid wave. No pulsatile masses on exam, rebound tenderness, Wagoner sign or pain over Mcburney's point. MUSCLES/EXTREMITIES No abnormal range of motion, no swelling. Posterior neck point tenderness. SKIN Warm, pink and dry. No rashes, dermatoses, petechiae or lesions. NEUROLOGICAL Speech is clear and appropriate. Normal level of consciousness. Gait and coordination are normal. 5/5 strength in all extremities. PSYCH Normal mood and affect. Judgement/competence is appropriate Office Procedures Flu Questionnaire Does the patient have a severe egg allergy?: No Does the patient have severe life threatening allergies?: No Does the patient have a fever or illness today?: No Has the patient ever had Guillain-Glencoe Syndrome?: No Has the patient ever had any past reaction to a flu shot?: No Immunizations Fluarix [id number] (PF) 45 mcg (15 mcg x 3)/0.5 mL IM syringe Performing Provider: Chun Conroy MD [facility] Administered by: Christy Ugalde CMA on 07/02/25 09:25 2 Dose Route Admin Location Dispensed Lot Number Expiration Date [facility] Regional Driver 0.5 mL IM Right Deltoid 0.5 mL [id number] 03/02/26 [id number] [employer] VIS Given Date VIS Provided VIS Publication Date 07/02/25 Single Vaccine 24 Eligibility Eligibility Date Funding Source Not [facility] Eligible 07/02/25 Private Coding Level of Care Code New Pt Level 4 (47484) New Pt Prev Care 40-64y(43028) Diagnoses Healthcare maintenance Z00.00 Neck pain M54.2 Food intolerance K90.49 Hearing disorder, unspecified laterality H91.90 Laterality: unspecified laterality Elevated blood pressure reading R03.0 Additional Codes PHQ-9 - 29449 - PHQ-9 Billing: Yes ([id number]) Time Spent (min) 30 Assessment & Plan Assessment & Plan (1) Healthcare maintenance: Code(s): Z00.00 - Encounter for general adult medical examination without abnormal findings Category: Medical Plan: CBC, CMP, Lipid panel, A1C, TSH w T4, vit D. Today. Shingles 2 doses when >50 yo. Will check with retail pharmacy. COVID: two doses. Done in the past. Pneumococcal: >50 yo. 18-49 with CKD, lung disease, weakened immune system, Heart disease, DM, cochlear implant. Flu vaccine: today. Tdap: every 10 years. due in 2027. Colonoscopy: 45-75 ordered today. AAA: 65 -75. Smoked when he was 15 for only one [address]. CT lun - 80. Smoked when he was 15 for only one year. PSA: 50 -70 every two years. Ordered today. HIV: Ordered today. HCV: Ordered today. (2) Neck pain: Code(s): M54.2 - Cervicalgia Category: Medical Plan: - An X-ray of the cervical spine will be obtained to evaluate for any acute changes. - A referral to orthopedic surgery with Dr. Hickey will be placed for further evaluation and management, given the patient's surgical history and recent increase in symptoms. (3) Food intolerance: Code(s): K90.49 - Malabsorption due to intolerance, not elsewhere classified Category: Medical Plan: - The patient's dietary modifications, which avoid trigger foods and have resulted in weight loss, seem beneficial to his overall health. - Continue current diet and monitor symptoms. - Advised the patient to keep a list of his food intolerance. - We will check for Celiac disease. - Alpha gal antibodies were discussed. However this will not change our management since the patient is already avoiding triggers. (4) Hearing problem: Code(s): H91.90 - Unspecified hearing loss, unspecified ear Category: Medical Qualifiers: Laterality: unspecified laterality Qualified Code(s): H91.90 - Unspecified hearing loss, unspecified ear Plan: Speech and hearing referral. (5) Elevated blood pressure reading: Code(s): R03.0 - Elevated blood-pressure reading, without diagnosis of hypertension Category: Medical Plan: - Defer starting antihypertensive medication at this time. - Instructed the patient to monitor his blood pressure at home three times per week, particularly when relaxed and not in significant pain, and to keep a log to assess the trend over time. Plan I have ordered an X-ray of your neck to investigate the recent increase in pain and the popping sensation you described. I am also placing a referral for you to see your orthopedic surgeon, Dr. Hickey, for a specialist evaluation. We discussed your blood pressure, which was a little high today; I recommended you check it at home three times a week and keep a log so we can see the trend. For health maintenance, we are ordering general lab work, including screening for HIV and Hepatitis C, which you agreed to. I am also arranging a referral for a colonoscopy, as it has been about 8-9 years since your last one. You received your flu shot today, and I recommend you get the Shingrix vaccine for shingles at a local pharmacy. We will plan to follow up in one year, but please call the clinic if you need anything in the meantime. Orders: Orders XR cervical spine 3V Today M54.2 - Cervicalgia Complete Blood Count no Diff Today Z00.00 - Encounter for general adult medical examination without abnormal findings Comprehensive Met. Panel Today Z00.00 - Encounter for general adult medical examination without abnormal findings TSH reflex Free T4 Today Z00.00 - Encounter for general adult medical examination without abnormal findings Prostate Specific Antigen Today Z00.00 - Encounter for general adult medical examination without abnormal findings Celiac Disease Panel Today K90.49 - Malabsorption due to intolerance, not elsewhere classified Hemoglobin A1c Today Z00.00 - Encounter for general adult medical examination without abnormal findings HIV Ab/Ag Today Z00.00 - Encounter for general adult medical examination witho ut abnormal findings Hepatitis C Antibody Reflex Today Z00.00 - Encounter for general adult medical examination without abnormal findings Lipid Panel Today Z00.00 - Encounter for general adult medical examination without abnormal findings UA and rflx microscopic Today Z00.00 - Encounter for general adult medical examination without abnormal findings Vitamin D 25-OH Total Today Z00.00 - Encounter for general adult medical examination without abnormal findings Influenza [id number] Immunization Today Z23 - Encounter for immunization Referrals Speech and Hearing Referral H91.90 - Unspecified hearing loss, unspecified ear Open Access Screening Colonoscopy Referral Z12.11 - Encounter for screening for malignant neoplasm of colon, Z12.12 - Encounter for screening for malignant neoplasm of rectum Orthopedics Referral M54.2 - Cervicalgia
[2025-07-02 08:50] VITALS: BP 140/80; PULSE 90; TEMP 36.4; O2SAT 97; BMI 29.4
--- OUTSIDE RECORDS SUMMARY | 2025-07-02 09:33 | XMS_ITS | Clinical Summary ---
Author Organization [facility] ity Address [address] [place] [address] Care Team Providers Care Weigher Operator Name Role Phone Memo Stephens Primary Care Provider Social History Tobacco Use Types Packs/Day Years Used Date Smoking Tobacco: Never Assessed Sex and Gender Information Value Date Recorded Sex Assigned at Not on file Legal Sex Male 3:41 AM EST Gender Identity Not on file Sexual Orientation Not on file Plan of Treatment Health Maintenance Due Date Last Done Comments DTaP,Tdap,and Td Vaccines (1 - Tdap) 1986 Hepatitis B Vaccines (1 of 3 - 19+ 3-dose series) 1986 Pneumococcal Vaccine: 50+ Ye ars (1 of 1 - PCV) 2017 Zoster Vaccines (1 of 2) 2017 Depression Screening 09/03/2024 COVID-19 Vaccine (1 - 2023-2 5 season) 2025 Influenza Vaccine (#1) 2025 RSV Immunization Adult Patie nts (1 - 1-dose 75+ series) 2042 HIB Vaccines Aged Out No longer eligi ble based on patient's age to complete this topic HPV Vaccines Aged Out No longer eligi ble based on patient's age to complete this topic Hepatitis A Vaccines Aged Out No long er eligible based on patient's age to complete this topic IPV Vaccines Aged Out No longer eligi ble based on patient's age to complete this topic MMR Vaccines Aged Out No longer eligi ble based on patient's age to complete this topic Meningococcal ACWY Vaccine Aged Out N o longer eligible based on patient's age to complete this topic Meningococcal B Vaccine Aged Out No l onger eligible based on patient's age to complete this topic RSV Immunization Patients Un graham 20 months Aged Out No longer eligible b ased on patient's age to complete this topic Varicella Vaccines Aged Out No longer eligible based on patient's age to complete this topic Care Teams Weigher Operator Relationship Specialty Start Date End Date Memo Stephens PA PCP - General Physician Co[place] 06/29/21
--- OUTSIDE RECORDS SUMMARY | 2025-07-02 09:33 | XMS_ITS | Clinical Summary ---
Author Organization [facility] Address [address] [place] [id number] Phone Care Team Providers Care Travel Director Name Role Phone Pcp, Unknown Primary Care Provider Unavailabl e Social History Tobacco Use Types Packs/Day Years Used Date Smoking Tobacco: Never Assessed Education Answer Date Recorded Are you interested in more education? Not on janette e 12/30/2022 Are you concerned about learning? Not on file 12/30/2022 No 12/30/2022 No 12/30/2022 Digital Access Answer Date Recorded No 01/30/2023 No 01/30/2023 Reliable internet access at home? Not on file 01/30/2023 Device with a working camera? Not on file Sex and Gender Information Value Date Recorded Sex Assigned at Not on file Legal Sex Male 1:38 PM EST Gender Identity Not on file Sexual Orientation Not on file Plan of Treatment Health Maintenance Due Date Last Done Comments LIPID PANEL 1967 DEPRESSION SCREENING 1979 SMOKING Hx and SMOKELESS TOB ACCO SCREENING 1980 HEPATITIS C SCREENING 1985 HIV ONE-TIME SCREENING (18-6 5 YEARS) 1985 COLOGUARD 2012 COLONOSCOPY 2012 COLORECTAL CANCER SCREENING 2012 FIT TEST 2012 FOBT 2012 SIGMOIDOSCOPY 2012 VIRTUAL COLONOSCOPY 2012 PNEUMOCOCCAL VACCINES (50+ y ears) (1 of 1 - PCV) 2017 ZOSTER VACCINES (1 of 2) 2017 INFLUENZA VACCINE (#1) 2025 COVID-19 VACCINE ( - 2024-2 6 season) 2025 Adult Td,Tdap Booster 02/27/2029 02/27/2019 RSV VACCINE (1 - 1-dose 75+ series) 2042 HEPATITIS A VACCINES Aged Out No long er eligible based on patient's age to complete this topic HIB VACCINES Aged Out No longer eligi ble based on patient's age to complete this topic MENINGOCOCCAL VACCINES (ACWY) Aged Out No longer eligible based on patient's age to complete this topic MENINGOCOCCAL VACCINES (B) Aged Out N o longer eligible based on patient's age to complete this topic Medical Devices Not on file Insurance GENERIC COMMERCIAL GENERIC COMMERCIAL GENERIC COMMERCIAL GENERIC COMMERCIAL GENERIC COMMERCIAL GENERIC COMMERCIAL Care Teams Travel Director Relationship Specialty Start Date End Date Pcp, Unknown PCP - General 07/19/22 Additional Source Comments The information contained in this document represents components of the legal health record. It is not the complete legal health record.[facility]
== END 2025-07-02 09:41 | disposition home or self-care (01) ==
PROVIDERS: PCP Physician Assistant; Visit Provider Internal Medicine
DX: Z00.00 Encounter for general adult medical examination without abnormal findings (principal); M54.2 Cervicalgia; K90.49 Malabsorption due to intolerance, not elsewhere classified; H91.90 Unspecified hearing loss, unspecified ear; R03.0 Elevated blood-pressure reading, without diagnosis of hypertension; Z23 Encounter for immunization

== ENCOUNTER → 2025-07-02 09:55 | Outpatient (BNV) | payer OTHER, SELFPAY | PROVIDERS: PCP Physician Assistant; Visit Provider Radiology Diagnostic Radiology | DX: M54.2 Cervicalgia (principal); Z98.1 Arthrodesis status | CPT/HCPCS: 72040 ==

== ENCOUNTER 2025-07-03 10:31 | Outpatient (REF) | payer MEDICARE, SELFPAY ==
[2025-07-03 11:38] LABS: Hematocrit 48.5 % (42.0-52.0); Hemoglobin 16.0 g/dl (14.0-18.0); Mean Corpuscular HGB Conc 33.0 g/dl (31.0-36.0); Mean Corpuscular Hemoglobin 30.4 pg (27.0-33.0); Mean Corpuscular Volume 92.2 fL (80.0-98.0); NRBC Abs Auto 0.000 X10*3/uL (0.0-0.012); NRBC Pct Auto 0.0 /100WBC (0.0-0.2); Platelet Count 205 X10*3/uL (160-400); Red Blood Count 5.26 X10*6/uL (4.60-5.80); White Blood Count 6.5 X10*3/uL (4.8-10.8)
--- OUTSIDE RECORDS SUMMARY | 2025-07-03 11:54 | XMS_ITS | Clinical Summary ---
Author Organization [facility] Address [address] [place] [id number] Phone Care Team Providers Care Ship Harbor Pilot Name Role Phone Pcp, Unknown Primary Care [...] COMMERCIAL GENERIC COMMERCIAL GENERIC COMMERCIAL Care Teams Ship Harbor Pilot Relationship Specialty Start Date End Date Pcp, Unknown PCP - General 07/19/22 Additional Source Comments The information contained in this document represents components of the legal health record. It is not the complete legal health record.[facility]
--- OUTSIDE RECORDS SUMMARY | 2025-07-03 11:54 | XMS_ITS | Clinical Summary ---
Author Organization [facility] ity Address [address] [place] [address] Care Team Providers Care Automotive Fleet Supervisor Name Role Phone Memo Stephens Primary Care [...] age to complete this topic Care Teams Automotive Fleet Supervisor Relationship Specialty Start Date End Date Memo Stephens PA PCP - General Physician Commercial Finance Manager 06/29/21
[2025-07-03 12:15] LABS: Alanine Aminotransferase 74 U/L (0-40); Albumin Level 4.6 g/dL (3.5-5.0); Alkaline Phosphatase 97 U/L (39-117); Anion Gap 10 (12-20); Aspartate Amino Transferase 44 U/L (5-37); Blood Urea Nitrogen 12 mg/dL (9-16); Calcium 9.6 mg/dL (8.4-10.2); Carbon Dioxide 27 mmol/L (22-29); Chloride 107 mmol/L (96-108); Cholesterol 206 mg/dL (<200); Estimated Glomerular Filt Rate > 60; HDL Cholesterol 35 mg/dL (>40); Potassium 4.0 mmol/L (3.3-5.1); Sodium 140 mmol/L (135-145); Total Protein 7.3 g/dL (6.5-8.0); Triglycerides 207 mg/dL (<150)
[2025-07-03 12:28] LABS: HIV Num 1 0.07 S/CO (0.00-0.99); ~HepC Num1 0.06 S/CO (0.00-0.79); ~Hepatitis C Antibody Nonreactive (Nonreactive)
[2025-07-03 12:30] LABS: Prostate Specific Antigen 0.29 ng/mL (<0.05-4.0)
[2025-07-06 19:04] LABS: Immunoglobulin A 293 mg/dL (47-310)
== END 2025-07-03 10:32 | disposition home or self-care (01) ==
LOC: HO.LAB 10:31
PROVIDERS: PCP Physician Assistant; Visit Provider Internal Medicine
DX: Z00.00 Encounter for general adult medical examination without abnormal findings (principal); K90.49 Malabsorption due to intolerance, not elsewhere classified; Z12.5 Encounter for screening for malignant neoplasm of prostate; Z13.1 Encounter for screening for diabetes mellitus; Z12.39 Encounter for other screening for malignant neoplasm of breast; Z11.4 Encounter for screening for human immunodeficiency virus [HIV]; Z11.59 Encounter for screening for other viral diseases
CPT/HCPCS: 36415; 80053; 80061; 82306; 82784; 83036; 84153; 84443; 85027; 86364; 86803; 87389

== ENCOUNTER 2025-07-07 07:49 | Outpatient (REF) | payer MEDICARE, SELFPAY ==
--- OUTSIDE RECORDS SUMMARY | 2025-07-07 07:52 | XMS_ITS | Clinical Summary ---
Author Organization [facility] Address [address] [place] [id number] Phone Care Team Providers Care Manager Of Financial Name Role Phone Pcp, Unknown Primary Care [...] COMMERCIAL GENERIC COMMERCIAL GENERIC COMMERCIAL Care Teams Manager Of Financial Relationship Specialty Start Date End Date Pcp, Unknown PCP - General 07/19/22 Additional Source Comments The information contained in this document represents components of the legal health record. It is not the complete legal health record.[facility]
--- OUTSIDE RECORDS SUMMARY | 2025-07-07 07:52 | XMS_ITS | Clinical Summary ---
Author Organization [facility] ity Address [address] [place] [address] Care Team Providers Care Health Navigator Name Role Phone Memo Stephens Primary Care Provider [phone] Social History Tobacco Use Types Packs/Day Years [...] age to complete this topic Care Teams Health Navigator Relationship Specialty Start Date End Date Memo Stephens PA PCP - General Physician Swimming Teacher 06/29/21
[2025-07-07 08:31] LABS: Appearance Urine Clear; Glucose Urine UA Negative (Negative); PH 6.5 (5.0-9.0); Specific Gravity - Urine 1.010 (1.005-1.025)
== END 2025-07-07 07:50 | disposition home or self-care (01) ==
LOC: HO.LAB 07:49
PROVIDERS: PCP Physician Assistant; Visit Provider Internal Medicine
DX: Z00.00 Encounter for general adult medical examination without abnormal findings (principal)
CPT/HCPCS: 81003